=== PATIENT | female | born 1980 | race Two or more races ===

== ENCOUNTER 2023-01-20 21:35 | Emergency (ER) | payer OTHER ==
[~2023-01-20] VITALS: Ht 165.1 cm; Wt 58.1 kg
[2023-01-20] MEDS ORDERED: IBUPROFEN 400 MG TABLET ONE (22:28)
[2023-01-20] MEDS ORDERED: IBUPROFEN 400 MG TABLET PO ONE (22:30)
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
--- NOTE | 2023-01-20 23:48 | NUR ---
Patient discharged to home in stable condition. Written and verbal after care instructions given. Patient verbalizes understanding of instruction.
[2023-01-20 23:49] VITALS: BP 130/84
== END 2023-01-20 23:50 | disposition home or self-care (01) ==
LOC: ER 21:37
DX: S93.491A Sprain of other ligament of right ankle, initial encounter (principal); S80.01XA Contusion of right knee, initial encounter; S09.8XXA Other specified injuries of head, initial encounter; Z98.890 Other specified postprocedural states; Z60.2 Problems related to living alone; Y04.8XXA Assault by other bodily force, initial encounter; Y93.89 Activity, other specified; Y92.89 Other specified places as the place of occurrence of the external cause; Y99.8 Other external cause status
CPT/HCPCS: 70450-TC; 73564-TC; 73610-TC